=== PATIENT | female | born 1990 | race Caucasian/White ===

== ENCOUNTER 2018-02-10 15:17 | Emergency (ER) | payer BC, OTHER ==
[2018-02-10] MEDS: IBUPROFEN 200 MG TAB PO (16:46)
[2018-02-10] MEDS: ACETAMINOPHEN 325 MG TAB PO (16:46)
[2018-02-10 16:47] LABS: URINE BLOOD (Dip) POC 1+ (NEGATIVE); URINE GLUCOSE (Dip) POC Negative (NEGATIVE); URINE KETONES (Dip) POC 2+ (NEGATIVE); URINE LEUKOCYTE EST (Dip) POC Negative (NEGATIVE); URINE NITRITE (Dip) POC Negative (NEGATIVE); URINE TOTAL PROTEIN POC Negative (NEGATIVE)
== END 2018-02-10 19:03 | disposition home or self-care (01) ==
LOC: FTE 15:17
DX: R31.9 Hematuria, unspecified (principal); R10.2 Pelvic and perineal pain
CPT/HCPCS: 76830; 76856; 81003; 81025; 99284-25